=== PATIENT | female | born 1940 | race Native Hawaiian/Other Pacific Islander ===

== ENCOUNTER 2017-04-05 06:41 | Day surgery (SDC) | payer OTHER | END 2017-04-05 10:55 | disposition home or self-care (01) | LOC: OR 06:41 | PROC: 0DJ08ZZ Inspection of Upper Intestinal Tract, Via Natural or Artificial Opening Endoscopic (ICD-10-PCS; principal; 2017-04-05) | DX: K21.0 Gastro-esophageal reflux disease with esophagitis (principal); K22.2 Esophageal obstruction; K29.60 Other gastritis without bleeding; K44.9 Diaphragmatic hernia without obstruction or gangrene; R13.19 Other dysphagia | CPT/HCPCS: J2704 ==

== ENCOUNTER 2017-05-09 09:18 | Day surgery (SDC) | payer OTHER ==
[~2017-05-09] VITALS: Ht 30.5 cm; Wt 0.5 kg
== END 2017-05-09 14:00 | disposition home or self-care (01) ==
LOC: OR 09:18
PROC: 09B0XZZ Excision of Right External Ear, External Approach (ICD-10-PCS; principal; 2017-05-09)
PROC: 0HR2X74 Replacement of Right Ear Skin with Autologous Tissue Substitute, Partial Thickness, External Approach (ICD-10-PCS; 2017-05-09)
DX: C44.212 Basal cell carcinoma of skin of right ear and external auricular canal (principal)
CPT/HCPCS: J0690; J2001; J2250; J2704; J3010; J3490; S0028

== ENCOUNTER 2017-07-13 15:32 | Outpatient (CLI) | payer OTHER ==
[2017-07-13 15:43] LABS: PLATELET COUNT 288 K/uL (152-353)
== END 2017-07-13 16:35 | disposition home or self-care (01) ==
LOC: LABW 15:32
PROVIDERS: Nurse Practitioner
DX: I10 Essential (primary) hypertension (principal)
CPT/HCPCS: 36415; 85027

== ENCOUNTER 2018-04-18 16:57 | Outpatient (CLI) | payer OTHER ==
[2018-04-18 17:14] LABS: PLATELET COUNT 426 K/uL (152-353)
[2018-04-18 17:35] LABS: POTASSIUM 3.2 mmol/L (3.6-5.2)
== END 2018-04-18 20:27 | disposition home or self-care (01) ==
LOC: LABW 16:57
PROVIDERS: Nurse Practitioner
DX: E78.00 Pure hypercholesterolemia, unspecified (principal); I10 Essential (primary) hypertension; R53.83 Other fatigue; E55.9 Vitamin D deficiency, unspecified
CPT/HCPCS: 36415; 80053; 80061; 82306; 82607; 84443; 85027

== ENCOUNTER 2018-04-20 15:04 | Outpatient (CLI) | payer OTHER | END 2018-04-20 19:20 | disposition home or self-care (01) | LOC: INF 15:04 | DX: D50.8 Other iron deficiency anemias (principal) | CPT/HCPCS: 36415; 82728; 83540; 85014; 85018 ==

== ENCOUNTER 2018-04-20 20:17 | Emergency (ER) | payer OTHER ==
[~2018-04-20] VITALS: Ht 152.4 cm; Wt 43.5 kg
[2018-04-20 23:19] LABS: PLATELET COUNT 412 K/uL (152-353)
[2018-04-20 23:23] LABS: POTASSIUM 3.8 mmol/L (3.6-5.2)
[2018-04-21 01:20] VITALS: BP 174/85; TEMP 98.5
== END 2018-04-21 01:20 | disposition home or self-care (01) ==
LOC: ED 20:17
PROVIDERS: Specialist
DX: E86.9 Volume depletion, unspecified (principal)
CPT/HCPCS: 36415; 80053; 83735; 84100; 85027; 96365; 96375; 99284; J1720; J3411; J3490

== ENCOUNTER 2018-04-21 11:09 | Outpatient (CLI) | payer OTHER | END 2018-04-21 19:07 | disposition home or self-care (01) | LOC: INF 11:09 | DX: D50.8 Other iron deficiency anemias (principal) | CPT/HCPCS: Q0138 ==

== ENCOUNTER 2018-04-27 09:57 | Outpatient (CLI) | payer OTHER ==
[~2018-04-27] VITALS: Ht 149.9 cm; Wt 43.5 kg
== END 2018-04-27 19:08 | disposition home or self-care (01) ==
LOC: INF 09:57
DX: D64.89 Other specified anemias (principal)
CPT/HCPCS: 96365; Q0138

== ENCOUNTER 2018-10-02 08:58 | Outpatient (CLI) | payer OTHER ==
[2018-10-02 09:41] LABS: PLATELET COUNT 253 K/uL (152-353)
[2018-10-02 10:09] LABS: POTASSIUM 3.5 mmol/L (3.6-5.2)
== END 2018-10-02 21:22 | disposition home or self-care (01) ==
LOC: LABW 08:58
PROVIDERS: Nurse Practitioner
DX: I10 Essential (primary) hypertension (principal); D64.9 Anemia, unspecified; R53.83 Other fatigue; E78.00 Pure hypercholesterolemia, unspecified
CPT/HCPCS: 36415; 80053; 80061; 82728; 83540; 83550; 84443; 85027

== ENCOUNTER 2018-11-15 17:30 | Outpatient (CLI) | payer OTHER | END 2018-11-15 21:44 | disposition home or self-care (01) | LOC: LABW 17:30 | PROVIDERS: Specialist | DX: F03.90 Unspecified dementia, unspecified severity, without behavioral disturbance, psychotic disturbance, mood disturbance, and anxiety (principal); R40.4 Transient alteration of awareness; R56.1 Post traumatic seizures; Z79.899 Other long term (current) drug therapy; I10 Essential (primary) hypertension | CPT/HCPCS: 80061; 82607; 82746; 83090; 85651; 86038; 86140 ==

== ENCOUNTER → 2019-04-05 08:18 | Outpatient (CLI) | payer OTHER | END | disposition short-term general hospital (02) | LOC: AMB 08:18 | DX: R53.1 Weakness (principal); R55 Syncope and collapse | CPT/HCPCS: A0425; A0429 ==

== ENCOUNTER 2019-04-05 08:21 | Emergency (ER) | payer OTHER ==
[~2019-04-05] VITALS: Ht 149.9 cm; Wt 38.1 kg
[2019-04-05 08:38] VITALS: TEMP 97.7
[2019-04-05 08:52] LABS: PLATELET COUNT 192 K/uL (152-353)
[2019-04-05 09:09] LABS: POTASSIUM 3.8 mmol/L (3.6-5.2)
[2019-04-05 11:35] VITALS: BP 108/72
== END 2019-04-05 11:45 | disposition short-term general hospital (02) ==
LOC: ED 08:21
PROVIDERS: Emergency Medicine Emergency Medical Services
PROC: 0T9B70Z Drainage of Bladder with Drainage Device, Via Natural or Artificial Opening (ICD-10-PCS; principal; 2019-04-05)
PROC: 0BH17EZ Insertion of Endotracheal Airway into Trachea, Via Natural or Artificial Opening (ICD-10-PCS; 2019-04-05)
PROC: 5A1935Z Respiratory Ventilation, Less than 24 Consecutive Hours (ICD-10-PCS; 2019-04-05)
DX: R41.82 Altered mental status, unspecified (principal); E86.0 Dehydration; J96.90 Respiratory failure, unspecified, unspecified whether with hypoxia or hypercapnia; I21.4 Non-ST elevation (NSTEMI) myocardial infarction
CPT/HCPCS: 31500; 36415; 36600; 51702; 80053; 82550; 82805; 84484; 85027; 87040; 93005; 96361; 96365; 96375; 99285; J0330; J2250

== ENCOUNTER 2019-04-05 11:49 | Outpatient (CLI) | payer OTHER | END 2019-04-05 13:11 | disposition short-term general hospital (02) | LOC: AMB 11:49 | DX: R41.82 Altered mental status, unspecified (principal) | CPT/HCPCS: A0425; A0429 ==

== ENCOUNTER 2020-01-01 08:00 | Inpatient (IN) | payer OTHER ==
[~2020-01-01] VITALS: Ht 157.5 cm; Wt 43.1 kg
[~2020-01-01 08:00] MED LIST: CARAFATE1 GM PO; CLARITIN10 M1 PO; CLOP75TA2 PO; FLECAINIDE50 MG PO; LIPITOR80 MG PO; LOSA50TA PO; MEGESTROL AC40 MG/ML PO; MEMANTINE HCL10 MG PO; PANTOPRAZOLE 40MG TA PO; REMERON SOLTAB15 MG; REMERON SOLTAB15 MG PO
[2020-01-01 12:13] LABS: PLATELET COUNT 181 K/uL (152-353)
[2020-01-01 12:38] LABS: POTASSIUM 3.6 mmol/L (3.6-5.2)
[2020-01-01 13:21] VITALS: BP 159/87; TEMP 100.5; Ht 157.5 cm; Wt 43.1 kg
[2020-01-01 20:00] VITALS: BP 121/72; TEMP 98.8
[2020-01-02 19:48] VITALS: BP 148/64; TEMP 98.6
[2020-01-03 08:00] VITALS: BP 156/75; TEMP 99.6
[2020-01-03 20:00] VITALS: BP 157/82; TEMP 99.8
[2020-01-04 19:51] VITALS: BP 155/74; TEMP 99.5
[2020-01-05 08:00] VITALS: BP 145/70; TEMP 98.7
[2020-01-05 20:00] VITALS: BP 149/81; TEMP 100.3
[2020-01-06 08:00] VITALS: BP 143/91; TEMP 99.5
[2020-01-06 20:00] VITALS: BP 142/82; TEMP 99.9
[2020-01-07 20:00] VITALS: BP 144/97; TEMP 100.9
[2020-01-08 08:00] VITALS: BP 170/77; TEMP 97.8
[2020-01-08 19:53] VITALS: BP 108/58; TEMP 99.5
[2020-01-09 09:29] VITALS: BP 146/74; TEMP 100
[2020-01-09 20:08] VITALS: BP 142/74; TEMP 99.7
[2020-01-10 09:02] VITALS: BP 137/67; TEMP 98
[2020-01-10 19:38] VITALS: BP 142/72; TEMP 97.8
[2020-01-11 08:00] VITALS: BP 132/59; TEMP 100.4
[2020-01-11 20:00] VITALS: BP 140/65; TEMP 99.1
[2020-01-12 08:00] VITALS: BP 138/60; TEMP 101.5
[2020-01-12 19:51] VITALS: BP 121/66; TEMP 98.7
[2020-01-13 08:00] VITALS: BP 116/65; TEMP 99.9
[2020-01-13 19:55] VITALS: BP 141/61; TEMP 97.7
[2020-01-14 08:00] VITALS: BP 112/61; TEMP 97.8
== END 2020-01-14 15:15 | disposition home or self-care (01) | DRG 556 ==
LOC: MED/SURG 08:00
PROVIDERS: ADMIT Internal Medicine
DX: M62.81 Muscle weakness (generalized) (principal); E46 Unspecified protein-calorie malnutrition; N39.0 Urinary tract infection, site not specified; I49.8 Other specified cardiac arrhythmias; E78.00 Pure hypercholesterolemia, unspecified; I10 Essential (primary) hypertension; I69.891 Dysphagia following other cerebrovascular disease; R13.19 Other dysphagia; I48.91 Unspecified atrial fibrillation; D64.89 Other specified anemias; R62.7 Adult failure to thrive; R26.89 Other abnormalities of gait and mobility; Z93.3 Colostomy status
CPT/HCPCS: 80053; 81000; 85027; 87077; 87088; 87502

== ENCOUNTER 2020-01-17 13:11 | Inpatient (IN) | payer OTHER ==
[2020-01-17] VITALS (10 sets, daily range): BP systolic 110–146; BP diastolic 62–90; TEMP 97.7–99.9; Ht 152.4 cm; Wt 45.9 kg
[~2020-01-17] VITALS: Ht 152.4 cm; Wt 45.9 kg
[2020-01-17 14:01] LABS: PLATELET COUNT 165 K/uL (152-353)
[2020-01-17 14:13] LABS: POTASSIUM 4.3 mmol/L (3.6-5.2); SODIUM 127 mmol/L (136-145)
[2020-01-17 14:46] LABS: PARTIAL THROMBOPLASTIN TIME 23.4 SECONDS (24.5-33.6)
--- NOTE | 2020-01-17 23:15 | NUR ---
DR WEINSTEIN AT BS
[2020-01-18] VITALS: BP 156/96; TEMP 98.1
[2020-01-18 04:00] VITALS: BP 146/88; TEMP 98.6
[2020-01-18 08:05] VITALS: BP 131/81; TEMP 100
[2020-01-18 12:06] VITALS: BP 120/74; TEMP 98.9
[2020-01-18 16:09] VITALS: BP 143/110; TEMP 101.4
[2020-01-18 20:00] VITALS: BP 139/80; TEMP 101
[2020-01-19] VITALS: BP 129/65; TEMP 100.3
--- NOTE | 2020-01-19 01:52 | NUR ---
LATE ENTRY 21:00PM. 100 ML OF NS GIVEN PER PEG TUBE. 2144 CHECKED FOR RESIDUAL. NONE. 355ML OF JEVITY GIVEN PER PEG TUBE. 22:00PM 100 ML OF NS GIVEN PER PEG TUBE. PT'S DRESSING TO PEG SITE WAS CHANGED PER PT'S GRANDDAUGHTER. DRESSING IS CLEAN AND INTACT. 01:OOAM 100 ML OF NS GIVEN PER PEG TUBE. PT WITH TEMP OF 100.3 AXILLARY.
--- NOTE | 2020-01-19 03:13 | NUR ---
AFTER 100 ML OF NS, JEVITY 355 ML WAS GIVEN VIA PEG TUBE. PT WAS CHANGED/DEPENDS PER HER DAUGHTER. DAUGHTER REPORTED SMALL STOOL AND URINE. PT WAS POSITIONED ON HER LEFT SIDE. PT'S DAUGHTER STATED THAT PT IS NOT CONTRACTED. STATED THE SHE DRAWS HER KNEES UP OFTEN. ALSO STATED THAT SHE WAS ABLE STRETCH HER LEGS WHEN SHE WANTED TO.
[2020-01-19 04:00] VITALS: BP 138/81; TEMP 98.8
--- NOTE | 2020-01-19 05:39 | NUR ---
PT SATURATED DEPENDS WITH UA AND SMALL STOOL. UNABLE TO COLLECT UA. INFORMED PT'S DAUGHTER NEED FOR URINE SPECIMAN. PT'S DAUGHTER VOICED UNDERSTANDING.
--- NOTE | 2020-01-19 05:41 | NUR ---
PT WAS CHANGED AND CALAMAZINE APPLIED TO RED SPOTS ON BUTTOCKS. PT WAS POSITIONED IN LF.
[2020-01-19 08:06] VITALS: BP 158/91; TEMP 99.6
--- NOTE | 2020-01-19 09:00 | NUR ---
PATIENT RESTING QUIETLY, FAMILY AT BEDSIDE. HOB UP RESTING WITH EYES CLOSED. MOUTH CARE DONE.
--- NOTE | 2020-01-19 10:00 | NUR ---
CHECKED PEG NO RESIDUAL, PATIENT REPOSITIONED IN BED RECIEVED AM MEDS VIA PEG, FED 1 CAN JEVITY VIA GRAVITY BY PEG PT DANTE WELL HOB UP. FLUSHED PEG WITH 60 ML NS. NO PROBLEMS NOTED.
[2020-01-19 12:06] VITALS: BP 165/84; TEMP 97.4
[2020-01-19 16:27] VITALS: BP 175/94; TEMP 98.1
--- NOTE | 2020-01-19 17:22 | NUR ---
1700 UA COLLECTED PER IN AND OUT CATH PER MD ORDERS. SMALL AMT OF URINE COLLECTED IN COLLECTION TUBE. URINE LABELED AND SETN TO LAB. URINE NOTED TO BE CLOUDY IN COLOR. PT TOLERATED WELL
--- NOTE | 2020-01-19 18:22 | NUR ---
1819 ABN URINE RESULTS CALLED TO DR WEINSTEIN. NEW ORDERS REC'D VIA PHONE. WILL INFORM PT'S FAMILY AND START ON IV ROCEPHIN 1 GM DAILY
[2020-01-19 20:00] VITALS: BP 174/94; TEMP 100.4
[2020-01-20] VITALS: BP 137/7; TEMP 99.6
--- NOTE | 2020-01-20 03:35 | NUR ---
01/19/20202199 JEVITY FEEDING GIVEN WITH 100ML NS FLUSH GIVEN BEFORE AND AFTER FEEDING PER PEG TUBE.TOLERATED WELL.CC
[2020-01-20 04:00] VITALS: BP 151/81; TEMP 99
[2020-01-20 06:29] LABS: PLATELET COUNT 146 K/uL (152-353)
[2020-01-20 06:42] LABS: POTASSIUM 3.9 mmol/L (3.6-5.2)
[2020-01-20 08:00] VITALS: BP 195/90; TEMP 99.3
--- NOTE | 2020-01-20 09:00 | NUR ---
Patient given medications via peg tube at this time along with peg tube feeding of Jevity 1.5 with NS 100ml before and after the feeding. Patient tolerated well. Residual checked prior to peg tube feeding and no residual noted at this time.
[2020-01-20 12:00] VITALS: BP 132/71; TEMP 98.4
--- NOTE | 2020-01-20 14:00 | NUR ---
Patient's residual peg tube checked, none noted at this time. Patient given NS 100ml via peg tube, Jevity 1.5 and flushed with NS 100ml after feeding. Patient tolerated well.
[2020-01-20 16:00] VITALS: BP 123/104; TEMP 100
--- NOTE | 2020-01-20 16:10 | NUR ---
at Dr. Florian's request, i spoke with family about their wishes for patients care. Dianne Tereso [phone] [facility] stated they will have a family descussion this evening about whether or not the patient should have a blood transfusion as she reported that the patient even during iron infusions in the past was adamant and refusing blood products at that time. They want to be sure they are honoring her wishes. Ms. Palafox daughter Deepa Erickson [phone] is the "structured family caregiver" by [employer] and is the legal community representative for patient. They will let us know in the morning if they continue to refuse transfusion and if they may want hospice or if they may just want to take the patient home without transfusion and without hospice.
[2020-01-20 20:00] VITALS: BP 154/89; TEMP 99.8
[2020-01-21] VITALS: BP 164/88; TEMP 98.3
[2020-01-21 04:00] VITALS: BP 143/84; TEMP 99.1
[2020-01-21 08:00] VITALS: BP 133/78; TEMP 100
--- NOTE | 2020-01-21 08:25 | NUR ---
spoke with Ayala-director of public health @ [facility] ([facility] [phone] to get patients Jevity 1.5 aneudy to prepare for discharge. She will get stat precert and let me know if she can overnight formula to patients residence.
--- NOTE | 2020-01-21 09:30 | NUR ---
JEVITY 1.5 TAMARA FEEDING GIVEN PER JERMAIN ARAMBULA RN WITH 100 ML WATER FLUSHED BEFORE AND AFTER. PT TOLERATED WELL.
--- NOTE | 2020-01-21 10:00 | NUR ---
IV NOTED TO BE OUT OF PT ARM. DR WEINSTEIN NOTIFIED. ORDERS REC'D TO LEAVE IV OUT.
[2020-01-21 12:00] VITALS: BP 148/84; TEMP 98.1
--- NOTE | 2020-01-21 12:30 | NUR ---
PT GIVEN JEVITY 1.5 TAMARA VIA PEG PER JERMAIN ARAMBULA RN. FLUSHED WITH 100 ML WATER BEFORE AND AFTER FEEDING.
--- NOTE | 2020-01-21 15:40 | NUR ---
s/w Ayala @ [employer] and they are overnighting her a months supply of Jevity 1.5 to be delivered to the patients residence by [employer] by the close of business on 01/22/20. i spoke with daughter, Deepa Erickson [phone], who is also legal agency sales representative/structured family caregiver, and she stated that they did not want the patient to have blood products because the patient had voiced in the past that she did not want to receive blood. She also said that the family did not want or need hospice services at this time because they "have had instances in the past with hospice and other family members and they were not ready to hasten the patients passing by keeing her on Morphine." I explained to Ms. Erickson that hospice is only an extra service for the patient and family that allows more support and improved care at home. She still declined at this time but i assured her to let us know at anytime if there was any other needs that we may assist with.
[2020-01-21 16:00] VITALS: BP 135/76; TEMP 99
[2020-01-21 20:00] VITALS: BP 155/86; TEMP 99
[2020-01-22] VITALS: BP 161/86; TEMP 97.6
[2020-01-22 04:00] VITALS: BP 123/68; TEMP 98.9
[2020-01-22 08:00] VITALS: BP 121/71; TEMP 98.7
--- NOTE | 2020-01-22 11:41 | NUR ---
1100 PT ASSISTED TO W/C. PT DISCHARGED VIA W/C ACCOMPANIED BY PÉREZ FLORES, AND JENNY CHANEL. PT DAUGHTER GIVEN DISCHARGE INSTRUCTIONS. INSTRUCTED TO CONTINUE ALL ROUTINE HOME MEDICATIONS, START AMOXICILLIN 500MG VIA PEG TUBE THREE TIMES A DAY UNTIL GONE. CON'T WITH PEG TUBE FEEDINGS OF JEVITY 1.5, 6 CANS PER DAY. PT DAUGHTER ALSO INSTRUCTED THAT JERMAIN JEAN WOULD CALL HER WITH FOLLOW UP APPT FOR A HOME VISIT SO THAT THE PT WOULD NOT HAVE TO COME INTO THE OFFICE. PT DAUGHTER VERBALIZED UNDERSTANDING. PT ASSISTED INTO CAR VIA PÉREZ FLORES AND PÉREZ SERRANO. PT TOLERATED WELL WITH OUT ANY DIFFICULTY NOTED.
== END 2020-01-22 10:40 | disposition home or self-care (01) | DRG 948 ==
LOC: ED 13:11 → MED/SURG 20:00
PROVIDERS: Family Medicine; ADMIT Internal Medicine
DX: R79.1 Abnormal coagulation profile (principal); N39.0 Urinary tract infection, site not specified; E87.1 Hypo-osmolality and hyponatremia; D64.89 Other specified anemias; I10 Essential (primary) hypertension; K21.9 Gastro-esophageal reflux disease without esophagitis; Z86.73 Personal history of transient ischemic attack (TIA), and cerebral infarction without residual deficits; R00.0 Tachycardia, unspecified; E78.00 Pure hypercholesterolemia, unspecified; R13.19 Other dysphagia; F03.90 Unspecified dementia, unspecified severity, without behavioral disturbance, psychotic disturbance, mood disturbance, and anxiety
CPT/HCPCS: 36415; 80053; 81000; 82550; 82553; 82728; 83540; 84484; 85027; 85379; 85610; 85730; 87077; 87086; 87088; 87185; 87186; 93005; 94760; 96360; 96372; 99284; J0696; J1650; J3490; J7040; Q9963

== ENCOUNTER 2020-03-29 11:01 | Emergency (ER) | payer OTHER ==
[~2020-03-29] VITALS: Ht 152.4 cm; Wt 45.8 kg
[2020-03-29 11:20] VITALS: TEMP 98.3
[2020-03-29 11:54] LABS: PLATELET COUNT 358 K/uL (152-353)
[2020-03-29 11:57] LABS: POTASSIUM 4.2 mmol/L (3.6-5.2)
[2020-03-29 12:05] LABS: PARTIAL THROMBOPLASTIN TIME 21.5 SECONDS (24.5-33.6)
[2020-03-29 15:15] VITALS: BP 117/71
== END 2020-03-29 15:15 | disposition home or self-care (01) ==
LOC: ED 11:01
PROVIDERS: Hospitalist
DX: K29.70 Gastritis, unspecified, without bleeding (principal); T45.525A Adverse effect of antithrombotic drugs, initial encounter; N39.0 Urinary tract infection, site not specified
CPT/HCPCS: 36415; 80053; 81000; 82150; 83690; 85007; 85027; 85610; 85730; 87077; 87086; 87088; 87186; 96360; 96365; 96375; 99284; J0696; J2405; J3490; Q9963

== ENCOUNTER 2020-04-04 09:55 | Inpatient (IN) | payer OTHER ==
[~2020-04-04] VITALS: Ht 152.4 cm; Wt 40.6 kg
[2020-04-04 10:10] VITALS: BP 91/66; TEMP 98.5
[2020-04-04 11:00] LABS: PLATELET COUNT 582 K/uL (152-353)
[2020-04-04 11:01] LABS: POTASSIUM 3.7 mmol/L (3.6-5.2)
[2020-04-04 11:06] LABS: PARTIAL THROMBOPLASTIN TIME 19.4 SECONDS (24.5-33.6)
[2020-04-04 11:17] VITALS: BP 107/71
[2020-04-04 11:30] VITALS: BP 107/71
[2020-04-04 12:00] VITALS: BP 96/72
[2020-04-04 17:08] VITALS: BP 112/66; TEMP 98.2; Ht 152.4 cm; Wt 40.6 kg
[2020-04-04 20:00] VITALS: BP 122/75; TEMP 97.9
[2020-04-05] VITALS: BP 123/77; TEMP 98.1
[2020-04-05 03:46] VITALS: BP 136/79; TEMP 98
[2020-04-05 06:13] LABS: PLATELET COUNT 306 K/uL (152-353)
[2020-04-05 08:00] VITALS: BP 134/77; TEMP 98.9
[2020-04-05 12:00] VITALS: BP 154/79; TEMP 97.5
[2020-04-05 16:00] VITALS: BP 154/94; TEMP 97.5
[2020-04-05 17:40] LABS: POTASSIUM 4.2 mmol/L (3.6-5.2)
[2020-04-05 20:00] VITALS: BP 125/68; TEMP 98.1
[2020-04-05 23:20] LABS: POTASSIUM 3.1 mmol/L (3.6-5.2)
[2020-04-06] VITALS (14 sets, daily range): BP systolic 87–149; BP diastolic 43–98; TEMP 97.1–98
[2020-04-06 04:48] LABS: PLATELET COUNT 270 K/uL (152-353)
[2020-04-06 05:35] LABS: POTASSIUM 2.7 mmol/L (3.6-5.2)
[2020-04-06 10:36] LABS: POTASSIUM 2.6 mmol/L (3.6-5.2)
[2020-04-06 16:22] LABS: POTASSIUM 2.7 mmol/L (3.6-5.2)
[2020-04-07] VITALS: BP 144/72; TEMP 97.7
[2020-04-07 00:08] LABS: POTASSIUM 3.9 mmol/L (3.6-5.2)
[2020-04-07 04:00] VITALS: BP 128/73; TEMP 96.2
[2020-04-07 05:50] LABS: POTASSIUM 3.9 mmol/L (3.6-5.2)
[2020-04-07 08:00] VITALS: BP 133/79; TEMP 97.9
[2020-04-07 12:00] VITALS: BP 124/51; TEMP 97.9
[2020-04-07 16:00] VITALS: BP 120/47; TEMP 98.4
[2020-04-07 20:00] VITALS: BP 106/69; TEMP 97.2
[2020-04-08] VITALS: BP 130/86; TEMP 97.7
[2020-04-08 04:00] VITALS: BP 140/93; TEMP 97.4
[2020-04-08 05:52] LABS: POTASSIUM 4.5 mmol/L (3.6-5.2)
[2020-04-08 08:00] VITALS: BP 131/84; TEMP 97.8
[2020-04-08 08:50] LABS: PLATELET COUNT 231 K/uL (152-353)
[2020-04-08 12:00] VITALS: BP 145/83; TEMP 97.9
[2020-04-08 16:00] VITALS: BP 110/71; TEMP 98.4
[2020-04-08 20:00] VITALS: BP 130/71; TEMP 97.2
[2020-04-09 00:11] VITALS: BP 116/65; TEMP 98.1
[2020-04-09 04:00] VITALS: BP 123/68; TEMP 98.4
[2020-04-09 05:03] LABS: POTASSIUM 4.8 mmol/L (3.6-5.2)
[2020-04-09 08:00] VITALS: BP 144/85; TEMP 98.1
[2020-04-09 12:00] VITALS: BP 110/63; TEMP 97.9
[2020-04-09 16:00] VITALS: BP 139/65; TEMP 98.4
== END 2020-04-09 19:04 | disposition home or self-care (01) | DRG 689 ==
LOC: ED 09:55 → MED/SURG 11:20
PROVIDERS: Emergency Medicine Emergency Medical Services; Internal Medicine; ADMIT Internal Medicine Endocrinology, Diabetes & Metabolism
DX: N30.00 Acute cystitis without hematuria (principal); R65.21 Severe sepsis with septic shock; G92 Toxic encephalopathy; E87.0 Hyperosmolality and hypernatremia; N17.8 Other acute kidney failure; E87.2 Acidosis; K52.1 Toxic gastroenteritis and colitis; F03.90 Unspecified dementia, unspecified severity, without behavioral disturbance, psychotic disturbance, mood disturbance, and anxiety; I95.89 Other hypotension; E87.6 Hypokalemia; B96.1 Klebsiella pneumoniae [K. pneumoniae] as the cause of diseases classified elsewhere; E86.1 Hypovolemia; D47.3 Essential (hemorrhagic) thrombocythemia; E78.49 Other hyperlipidemia; Z86.73 Personal history of transient ischemic attack (TIA), and cerebral infarction without residual deficits; T36.8X5A Adverse effect of other systemic antibiotics, initial encounter; Z93.1 Gastrostomy status
CPT/HCPCS: 36415; 36600; 51702; 80048; 80053; 81000; 82550; 82805; 82962; 83605; 84484; 85027; 85610; 85730; 87015; 87040; 87045; 87070; 87088; 87205; 87324; 87449; 87635; 87899; 93005; 94760; 96360; 96361; 96365; 99284; J1644; J1650; J2185; J2543; J3480; J3490; U0002